=== PATIENT | female | born 1990 | race Hispanic/Latino ===

== ENCOUNTER 2017-02-07 14:06 | Emergency (ER) | payer MEDICAID ==
[2017-02-07 14:54] VITALS: BP 123/70
[2017-02-07 15:56] LABS: Basophils % (Auto) 0.4 % (0.0-1.8); Eosinophils % (Auto) 1.5 % (0.0-4.3); Hematocrit 35.9 % (30.3-42.9); Hemoglobin 12.3 gm/dl (10.1-14.3); Mean Corpuscular HGB Conc 34 % (30-34); Mean Corpuscular Hemoglobin 30 pg (28-32); Mean Corpuscular Volume 88 fl (79-97); Platelet Count 354 K/mm3 (140-440); Red Blood Count 4.09 M/mm3 (3.65-5.03); Red Cell Distribution Width 14.1 % (13.2-15.2); White Blood Count 8.8 K/mm3 (4.5-11.0)
--- NOTE | 2017-02-07 17:21 | Ultrasound Report ---
FINAL REPORT EXAM: US OB TRANSVAGINAL HISTORY: 14 wks bleeding COMPARISONS: None. FINDINGS: Transvaginal grayscale, color Doppler and M-mode ultrasound evaluation of the pelvis Single intrauterine with recorded cardiac activity 168 beats per minute and crown-rump length of approximately 22 millimeters, which corresponds to estimated gestational age of 8 weeks 6 days and delivery date of 09/13/2017. No significant free fluid in the pelvis. The right ovary measures 2.8 x 2.7 x 3.7 cm with probable corpus luteal cyst measuring up to 2.4 cm. The left ovary is seen on transabdominal scan only and measures 3 x 1.6 x 2.3 cm with normal echotexture. IMPRESSION: Single living intrauterine with estimated delivery date of 09/13/2017 as detailed above. No evident complication.
--- NOTE | 2017-02-07 17:22 | Ultrasound Report ---
FINAL REPORT EXAM: US OB \T\lt; = 14 WEEKS FETUS HISTORY: 14 wks bleeding COMPARISONS: None. FINDINGS: Transabdominal grayscale, color Doppler and M-mode ultrasound evaluation of the pelvis Single intrauterine with recorded cardiac activity 168 beats per minute and crown-rump length of approximately 22 millimeters, which corresponds to estimated gestational age of 8 weeks 6 days and delivery date of 09/13/2017. No significant free fluid in the pelvis. The right ovary measures 2.8 x 2.7 x 3.7 cm with probable corpus luteal cyst measuring up to 2.4 cm. The left ovary is seen on transabdominal scan only and measures 3 x 1.6 x 2.3 cm with normal echotexture. IMPRESSION: Single living intrauterine with estimated delivery date of 09/13/2017 as detailed above. No evident complication.
--- NOTE | 2017-02-07 17:26 | Emergency Department Report ---
ED General Adult HPI - General Chief complaint: Vaginal Bleeding Stated complaint: 16 WKS ,VAGINAL BLEEDING Time Seen by Provider: 02/07/17 15:09 Source: patient, EMS Mode of arrival: Stretcher Limitations: No Limitations - History of Present Illness Initial comments: Patient states that she has received care outside of this area. She is currently at [facility]. 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 She is scheduled to be released from a program Thursday or Thursday. She states that she was concerned and that the reason she came to the emergency department is because she saw a "tinge of blood" per vagina. She is not bleeding now at all. She does not complain of any abdominal pain. -: Gradual Consistency: now resolved Improves with: none Worsens with: none Associated Symptoms: denies other symptoms Treatments Prior to Arrival: none - Related Data Allergies Allergy/AdvReac Type Severity Reaction Status Date / Time No Known Allergies Allergy Unverified 02/07/17 14:53 ED Review of Systems ROS: Stated complaint: 16 WKS ,VAGINAL BLEEDING Other details as noted in HPI Constitutional: denies: chills, fever Eyes: denies: eye pain, eye discharge, vision change ENT: denies: ear pain, throat pain Respiratory: denies: cough, shortness of breath, wheezing Cardiovascular: denies: chest pain, palpitations Endocrine: no symptoms reported Gastrointestinal: denies: abdominal pain, nausea, diarrhea Genitourinary: as per HPI. denies: urgency, dysuria, discharge Musculoskeletal: denies: back pain, joint swelling, arthralgia Skin: denies: rash, lesions Neurological: denies: headache, weakness, paresthesias Psychiatric: denies: anxiety, depression Hematological/Lymphatic: denies: easy bleeding, easy bruising ED Past Medical Hx - Past Medical History Previous Medical History?: Yes Additional medical history: hypothyroid - Surgical History Past Surgical History?: Yes Hx Cholecystectomy: Yes Additional Surgical History: - Social History Smoking Status: Current Every Day Smoker Substance Use Type: None ED Physical Exam - General Limitations: No Limitations General appearance: alert, in no apparent distress - Head Head exam: Present: atraumatic, normocephalic. Absent: normal inspection - Eye Eye exam: Present: normal appearance. Absent: scleral icterus - ENT ENT exam: Present: mucous membranes moist - Neck Neck exam: Present: normal inspection. Absent: tenderness, meningismus - Respiratory Respiratory exam: Present: normal lung sounds bilaterally. Absent: respiratory distress - Cardiovascular Cardiovascular Exam: Present: regular rate, normal rhythm. Absent: systolic murmur, diastolic murmur, rubs, gallop - GI/Abdominal GI/Abdominal exam: Present: soft, normal bowel sounds. Absent: distended, tenderness, guarding, rebound, rigid - Extremities Exam Extremities exam: Present: normal inspection - Back Exam Back exam: Present: normal inspection - Neurological Exam Neurological exam: Present: alert, oriented X3, CN II-XII intact. Absent: motor sensory deficit - Psychiatric Psychiatric exam: Present: normal affect, normal mood - Skin Skin exam: Present: warm, dry, intact, normal color. Absent: rash ED Course Vital Signs 02/07/17 02/07/17 14:47 16:16 Temperature 98.4 F Pulse Rate 79 Respiratory 16 16 Rate Blood Pressure 123/70 O2 Sat by Pulse 99 99 Oximetry ED Medical Decision Making - Lab Data Result diagrams: 02/07/17 15:19 Laboratory Results - last 24 hr 02/07/17 02/07/17 02/07/17 15:19 15:19 15:20 WBC 8.8 RBC 4.09 Hgb 12.3 Hct 35.9 MCV 88 MCH 30 MCHC 34 RDW 14.1 Plt Count 354 Lymph % (Auto) 29.7 [place] % (Auto) 8.2 H Eos % (Auto) 1.5 Baso % (Auto) 0.4 Lymph # 2.6 [place] # 0.7 Eos # 0.1 Baso # 0.0 Seg Neutrophils % 60.2 Seg Neutrophils # 5.3 HCG, Quant [id number] H Blood Type A POSITIVE Antibody Screen TNR ELLA Antibody Screen Negative - Radiology Data Radiology results: report reviewed interpreted by me: Single intrauterine living is seen estimated to be 8 weeks and 6 days Critical care attestation.: If time is entered above; I have spent that time in minutes in the direct care of this critically ill patient, excluding procedure time. ED Disposition Clinical Impression: First trimester bleeding Disposition: DISCHARGED TO HOME OR SELFCARE Is pt being admited?: No Does the pt Need Aspirin: No Condition: Stable Instructions: Threatened Miscarriage (ED) Additional Instructions: Return any acute change or problem. Follow-up with usual OB doctor this week. Referrals: PRIMARY CARE,MD [Primary Care Provider] - 3-5 Days usual, OB MD [Other] - 3-5 Days Time of Disposition: 17:27
[2017-02-07 17:30] LABS: Bacteria,Urine 1+ /HPF (Negative); Bilirubin,Urine NEG (Negative); Blood,Urine NEG (Negative); Ketones,Urine NEG (Negative); Leukocyte Esterase,Urine TR (Negative); Mucus,Urine FEW /HPF; Nitrite,Urine NEG (Negative); Protein,Urine <15 mg/dL mg/dL (Negative); Urobilinogen,Urine < 2.0 mg/dL (<2.0)
== END 2017-02-07 18:08 | disposition home or self-care (01) ==
LOC: ED 14:06
DX: O20.9 Hemorrhage in early pregnancy, unspecified (principal); Z3A.01 Less than 8 weeks gestation of pregnancy; E03.9 Hypothyroidism, unspecified; F17.200 Nicotine dependence, unspecified, uncomplicated
CPT/HCPCS: 36415; 76801; 76817; 81001; 84702; 85025; 86850; 86900; 86901